=== PATIENT | female | born 1950 | race Caucasian/White ===

== ENCOUNTER 2018-05-16 11:11 | Outpatient (CLI) | payer MEDICARE, BC, SELFPAY ==
--- NOTE | 2018-05-16 11:00 | DI.RAD_ITS ---
SYMPTOMS/DIAGNOSIS: DORSALGIA, M54.9 LUMBAR SPINE: AP, lateral and bilateral oblique views. There is normal alignment of the lumbar spine. No spondylolysis or spondylolisthesis is seen. There is disc space narrowing, vacuum disc and small osteophytes seen at the L 5 - S 1 disc space. The remaining disc spaces appear well maintained. There are mild degenerative changes at the L 4 - 5 and L 5 - S 1 disc spaces. No acute fracture or subluxations are seen. There are surgical clips in the right upper quadrant of the abdomen likely reflecting prior cholecystectomy. IMPRESSION: Degenerative changes seen in the lower lumbar spine.
== END 2018-05-16 11:31 ==
PROVIDERS: PCP Internal Medicine; Visit Provider Internal Medicine
DX: M54.5 Low back pain (principal); M51.37 Other intervertebral disc degeneration, lumbosacral region
CPT/HCPCS: 72110

== ENCOUNTER 2019-05-20 11:49 | Outpatient (CLI) | payer MEDICARE, BC, SELFPAY ==
[2019-05-20 13:25] LABS: Abs Immature Grans 0.02 k/cumm (0.0-0.09); Absolute Basophil Count 0.03 k/cumm (0.0-0.2); Absolute Eosinophil Count 0.24 k/cumm (0.0-0.7); Absolute Lymphocyte Count 1.52 k/cumm (1.2-3.4); Absolute Monocyte Count 0.62 k/cumm (0.11-0.7); Basophils % 0.5; Eosinophils % 3.9; HCT 41.4 % (36.0-46.0); HGB 13.3 g/dL (12.0-15.5); Immature Grans % 0.3 %; Lymphocytes % 24.4; Mean Corp. HGB Concentration 32.1 g/dL (32.0-36.0); Mean Corpuscular Hemoglobin 28.1 pg (27.0-33.0); Mean Corpuscular Volume 87.3 fL (80-95); Neutrophils % 60.9; Platelet Count 404 x1000/uL (130-400); RBC 4.74 m/cumm (4.00-5.20); RBC Distribution Width 14.8 % (11.7-14.6); White Blood Cell Count 6.23 k/cumm (4.4-10.8)
[2019-05-20 13:49] LABS: ALT 18 U/L (14-59); AST 17 U/L (15-37); Albumin 3.7 g/dL (3.4-5.0); Alkaline Phosphatase 109 U/L (46-116); Anion Gap 11.8 mmol/L (3-11); BUN 20 mg/dL (7-18); Bilirubin, Total 0.6 mg/dL (0.2-1.0); CO2 24.2 mmol/L (21.0-32.0); CREATININE 1.12 mg/dL (0.55-1.02); Calcium 9.3 mg/dL (8.5-10.1); Chloride 104 mmol/L (98-107); Estimated GFR 48.38 (mL/min/1.73m2); Glucose 92 mg/dL (74-106); Potassium 4.4 mmol/L (3.5-5.1); Sodium 140 mmol/L (136-145); TSH (W/Ref FT4) 1.96 uIU/mL (0.36-3.74)
== END 2019-05-20 12:09 ==
PROVIDERS: PCP Internal Medicine; Visit Provider Internal Medicine
DX: I10 Essential (primary) hypertension (principal); R50.9 Fever, unspecified
CPT/HCPCS: 36415; 80053; 84443; 85025

== ENCOUNTER 2019-05-21 02:42 | Outpatient (CLI) | payer MEDICARE, BC, SELFPAY ==
--- NOTE | 2019-05-21 10:30 | DI.MAMMO_ITS ---
EXAM: MAMMO SCREENING CLINICAL HISTORY: screening, Z12.39 TECHNIQUE: Mammograms were interpreted according to the usual protocol including computer analysis w [employer] CAD system, tomosynthesis and C-view imaging. COMPARISON: 2009 through 2017 FINDINGS: The breasts are composed of scattered fibroglandular densities, Breast Density category B. No suspicious masses or suspicious microcalcifications are seen. No skin thickening or abnormal axillary lymph nodes are seen. There has been no significant change from prior exams. There is motion on the right MLO view. IMPRESSION: .BI-RADS Cat 0 - Assessment Incomplete: Need additional imaging evaluation. There is motion on the r ight MLO view. The patient should return for a repeat right MLO view at no additional charge.
== END 2019-05-21 03:02 ==
PROVIDERS: PCP Internal Medicine; Visit Provider Internal Medicine
DX: Z12.31 Encounter for screening mammogram for malignant neoplasm of breast (principal); R92.8 Other abnormal and inconclusive findings on diagnostic imaging of breast
CPT/HCPCS: 77063; 77067

== ENCOUNTER 2020-03-26 02:21 | Outpatient (CLI) | payer MEDICARE, BC, SELFPAY ==
[2020-03-26 13:08] LABS: HCT 43.7 % (36.0-46.0); HGB 13.6 g/dL (11.2-15.7); MCHC 31.1 % (32.0-36.0); MCV 90.1 fL (80-95); MPV 9.7 fL (8.0-11.0); Platelet Count 241 10^3/uL (130-400); RBC 4.85 10^6/uL (3.93-5.22); WBC 6.54 10^3/uL (4.4-10.8)
[2020-03-26 13:42] LABS: ALT 19 U/L (14-59); AST 17 U/L (15-37); Albumin 3.4 g/dL (3.4-5.0); Alkaline Phosphatase 120 U/L (46-116); Anion Gap 11.2 mmol/L (3-11); BUN 20 mg/dL (7-18); Bilirubin, Total 0.3 mg/dL (0.2-1.0); CO2 26.8 mmol/L (21.0-32.0); CREATININE 1.14 mg/dL (0.55-1.02); Chloride 107 mmol/L (98-107); Folate 9.1 ng/mL (8.6-20.0); Glucose 78 mg/dL (74-106); Potassium 3.6 mmol/L (3.5-5.1); Sodium 145 mmol/L (136-145); TSH 2.08 uIU/mL (0.36-3.74); Total Protein 6.9 g/dL (6.4-8.2)
[2020-03-26 13:44] LABS: Vitamin B12 > 2000 pg/mL (193-986)
== END 2020-03-26 02:41 ==
PROVIDERS: PCP Nurse Practitioner; Visit Provider Nurse Practitioner
DX: R41.3 Other amnesia (principal)
CPT/HCPCS: 36415; 80053; 85027; 82607; 82746; 84443

== ENCOUNTER 2020-05-15 02:29 | Outpatient (CLI) | payer MEDICARE, BC, SELFPAY ==
[2020-05-15 13:44] LABS: ALT 21 U/L (14-59); AST 15 U/L (15-37); Albumin 3.6 g/dL (3.4-5.0); Alkaline Phosphatase 109 U/L (46-116); Bilirubin, Total 0.4 mg/dL (0.2-1.0); Calculated LDL 93 mg/dL (<100); Cholesterol 179 mg/dL (<200); GGT 25 U/L (5-55); HDL Cholesterol 70 mg/dL (40-60); Total Protein 7.1 g/dL (6.4-8.2); Triglyceride 80 mg/dL (<150)
== END 2020-05-15 02:30 | disposition home or self-care (01) ==
LOC: LBO 02:29
PROVIDERS: PCP Nurse Practitioner; Visit Provider Nurse Practitioner
DX: E78.5 Hyperlipidemia, unspecified (principal); R74.8 Abnormal levels of other serum enzymes; E66.9 Obesity, unspecified
CPT/HCPCS: 36415; 80061; 80076; 82977